=== PATIENT | male | born 1955 | race Hispanic/Latino ===

== ENCOUNTER 2017-07-11 19:40 | Emergency (ER) | payer MEDICARE, MEDICAID ==
[2017-07-11] MEDS ORDERED: Lidocaine Viscous Sol 2% 15 ml UD Cup ONE (20:07)
== END 2017-07-11 20:12 | disposition home or self-care (01) ==
LOC: ERS 19:40
DX: J02.9 Acute pharyngitis, unspecified (principal); B34.9 Viral infection, unspecified; E11.9 Type 2 diabetes mellitus without complications; I10 Essential (primary) hypertension
CPT/HCPCS: 99283

== ENCOUNTER 2021-04-23 15:00 | Emergency (ER) | payer MEDICARE, MEDICAID ==
[2021-04-23] MEDS ORDERED: Lidocaine 1% (PF) 30 ML VIAL ONE (17:03)
== END 2021-04-23 17:21 | disposition home or self-care (01) ==
LOC: ERS 15:00
DX: L60.0 Ingrowing nail (principal); L03.031 Cellulitis of right toe; I10 Essential (primary) hypertension; E11.9 Type 2 diabetes mellitus without complications
CPT/HCPCS: 11750; J2001